=== PATIENT | female | born 1970 | race Caucasian/White ===

== ENCOUNTER 2023-06-15 16:31 | Emergency (ER) | payer OTHER ==
[~2023-06-15] VITALS: Ht 165.1 cm; Wt 72.6 kg
[~2023-06-15 16:31] MED LIST: ACEASPCAF PO; ACET325; ALBIPROI INH; ALBU90OI; ALBU90OI INH; ALPR1; ASPI325 PO; AZIT250 PO; CLIN300 PO; CODACE30 PO; CRUTCH2 USE; CYCL10 PO; DESO.05TL TP; DIAZ5 PO; HYDACE5 PO; HYDACE5325 PO; HYDGUAL120 PO; IBUP200; IBUP800; IBUP800 PO; NAPR500 PO; OXYACE5T PO; PENVK500 PO; PHENY100ER PO; PRED20 PO; PROACE100 PO; PROM25 PO; RXHYDACE PO; SULTRIDS PO
[2023-06-15 17:16] VITALS: BP 160/98
== END 2023-06-15 17:38 | disposition home or self-care (01) ==
LOC: ER 16:31
DX: Z11.52 Encounter for screening for COVID-19 (principal); Z20.828 Contact with and (suspected) exposure to other viral communicable diseases; G40.909 Epilepsy, unspecified, not intractable, without status epilepticus; G89.29 Other chronic pain; M54.9 Dorsalgia, unspecified; Z79.899 Other long term (current) drug therapy; Z88.0 Allergy status to penicillin; Z88.8 Allergy status to other drugs, medicaments and biological substances; Z87.891 Personal history of nicotine dependence
CPT/HCPCS: 99283

== ENCOUNTER 2023-12-23 11:30 | Emergency (ER) | payer OTHER ==
[~2023-12-23] VITALS: Ht 170.2 cm; Wt 83.9 kg
[2023-12-23 12:07] VITALS: BP 175/105
[2023-12-23] MEDS ORDERED: Bactrim Ds Tab1 EACH PO (12:30)
== END 2023-12-23 12:44 | disposition home or self-care (01) ==
LOC: ER 11:30
DX: L02.415 Cutaneous abscess of right lower limb (principal); Z87.891 Personal history of nicotine dependence; Z79.899 Other long term (current) drug therapy; Z88.0 Allergy status to penicillin; Z88.1 Allergy status to other antibiotic agents; Z88.8 Allergy status to other drugs, medicaments and biological substances
CPT/HCPCS: 99282

== ENCOUNTER 2024-04-25 11:57 | Emergency (ER) | payer OTHER ==
[~2024-04-25] VITALS: Ht 170.2 cm; Wt 83.9 kg
[~2024-04-25 11:57] MED LIST changes: +Bactrim Ds Tab1 EACH PO; +CEPH500 PO
[2024-04-25 12:26] VITALS: BP 189/112
[2024-04-25] MEDS ORDERED: DOXY100 PO (14:54)
[2024-04-25] MEDS ORDERED: IBUP600 PO (14:54)
[2024-04-25] MEDS ORDERED: Doxycycline Hyclate 100 MG TAB PO ONE (14:55)
[2024-04-25] MEDS ORDERED: Ibuprofen 600 MG Tab PO ONE (14:55)
== END 2024-04-25 14:59 | disposition home or self-care (01) ==
LOC: ER 11:57
DX: R22.0 Localized swelling, mass and lump, head (principal); F17.210 Nicotine dependence, cigarettes, uncomplicated; Z79.899 Other long term (current) drug therapy; Z88.0 Allergy status to penicillin; Z88.8 Allergy status to other drugs, medicaments and biological substances
CPT/HCPCS: 99282; A9270